=== PATIENT | female | born 1945 | race Caucasian/White ===

== ENCOUNTER 2019-04-23 10:36 | Emergency (ER) | payer MEDICARE, OTHER, SELFPAY ==
--- NOTE | ~2019-04-23 | XR_ITS ---
EXAMINATION: XR hip LT 2V w AP pelvis INDICATION: Left hip pain TECHNIQUE: AP view the pelvis and two views of the left hip are obtained. COMPARISON: 12/09/2009 FINDINGS: Bone alignment is normal. There is no fracture. There is mild hip osteoarthritis. The soft tissues are unremarkable. IMPRESSION: 1. No acute osseous abnormality. Reviewed, dictated and finalized at location A. WILL AMBASSADOR
--- NOTE | ~2019-04-23 | XR_ITS ---
EXAMINATION: XR ribs LT 2V w CXR 2V INDICATION: Left rib pain after fall TECHNIQUE: AP and lateral views of the chest and 3 views of the left ribs were obtained. COMPARISON: 10/02/2013 FINDINGS: The lungs are free of acute opacities. There is no pleural effusion or pneumothorax. The ca rdiomediastinal silhouette is normal. There is dextroscoliosis of the thoracic spine. There appear to be nondisplaced fractures of the left fifth through seventh ribs. IMPRESSION: 1. Likely nondisplaced fractures of the left fifth through seventh ribs. No acute cardiopulmonary abn ormality. Reviewed, dictated and finalized at location A. R COVERING CONTRACTOR IMPRESSION: 1. Likely nondisplaced fractures of the left fifth through seventh ribs. No acu te cardiopulmonary abnormality.
--- NOTE | ~2019-04-23 | XR_ITS ---
EXAMINATION: XR forearm LT 2V INDICATION: Pain and bruising after fall TECHNIQUE: Two views of the left forearm are obtained. COMPARISON: None available FINDINGS: There is no fracture, dislocation, or subluxation. There is mild soft tissue swelling of th e arm. No joint effusion is identified. IMPRESSION: 1. Soft tissue swelling without acute osseous abnormality. Reviewed, dictated and finalized at location A. BOX COIN COLLECTOR
--- NOTE | ~2019-04-23 | CT_ITS ---
EXAMINATION: CT brain wo con DATE: 04/23/2019 11:10 INDICATION: Head injury. TECHNIQUE: Computed tomography (CT) of the head was performed without intravenous contrast. The mA wa s adjusted according to patient size. Iterative reconstruction technique was employed. The dose-lengt h product was 605.33 mGy-cm. COMPARISON: None FINDINGS: There is no intracranial hemorrhage, acute infarction, or abnormal intracranial mass lesion . The ventricles are normal in size. The paranasal sinuses are clear. The mastoid air cells are ermelinda l. The orbits are normal. IMPRESSION: 1. Normal brain. Reviewed, dictated and finalized at location A. IC ADMINISTRATOR IMPRESSION: 1. Normal brain.
[2019-04-23 10:52] VITALS: BP 141/78; PULSE 97; RESP 16; TEMP 36.2; O2SAT 97
--- NOTE | 2019-04-23 10:53 | ED.FALL ---
HPI - Fall General Chief Complaint: Fall Stated Complaint: fall/left rib pain Time Seen by Provider: 04/23/19 10:42 Source: patient and RN notes reviewed Mode of arrival: ambulatory Limitations: no limitations History of Present Illness HPI Narrative: Pt is a 73 y/o female who presents to the ED with c/o a fall which occurred 4 days ago. She states she was walking when she tripped and fell on a concrete floor, hitting her head. She states she was at a restaurant with her when this occurred. Pt denies being evaluated by a physician after the fall because she was not in much pain. However, pt reports her pain has been worsening secondary to the fall since it occurred. She reports left-sided rib cage pain, which worsens when she sits up. Pt also reports an ecchymoses to her left groin and LUE, a headache but not currently in the ED bed, and LUE pain, but denies dizziness, blurry vision, or neck pain. Pt reports a PMHx of Parkinson's Disease so she has had similar episodes of falls in the past. She reports she will be walking when she suddenly falls. Pt currently takes medication for her Parkinson's. Pt also reports taking hyperlipidemia medication and a baby ASA daily. However, she denies being on any anticoagulation therapy medication. complaint: fall Onset (ago): day(s) (4 days ago) Fall from: standing (was walking when she tripped) Fall witnessed: yes, by family Place fall occurred: other (at a restaurant) Loss of consciousness: none Prolonged down time: unclear Symptoms prior to fall: none Context: tripped/slipped Location of injury: chest (left-sided rib cage) Associated symptoms (after fall): other (ecchymoses to left groin and LUE; LUE pain) Related Data Home Medications Medication Instructions Recorded Confirmed aspirin 81 mg tablet,delayed 81 mg PO DAILY 02/28/19 release calcium carbonate 600 mg calcium 1,200 mg PO DAILY tablet 02/28/19 (1,500 mg) tablet carbidopa 25 mg-levodopa 100 mg 2 tablet PO .COMPLEX tablet 02/28/19 tablet cholecalciferol (vitamin D3) 50 2,000 unit PO DAILY 02/28/19 mcg (2,000 unit) tablet melatonin 10 mg capsule 10 mg PO DAILY cap 02/28/19 omega-3 fatty acids-fish oil 360 1 cap PO DAILY 02/28/19 mg-1,200 mg capsule quetiapine 25 mg tablet 12.5 mg PO DAILY tablet 02/28/19 ranitidine HCl 75 mg tablet 75 mg PO DAILY 02/28/19 Allergies Allergy/AdvReac Type Severity Reaction Status Date / Time No Known Drug Allergies Allergy Unknown Unknown Verified 03/03/19 10:17 Cantaloupe Allergy Severe ANAPHYLACTIC Uncoded 03/03/19 10:17 THROAT CLOSES Review of Systems Review of Systems: All systems reviewed & are unremarkable except as noted in HPI and below Eyes: Eyes: Denies change in vision (blurry vision) Musculoskeletal: Musculoskeletal: Denies neck pain and Reports other (LUE pain; left-sided rib cage pain) Integumentary/Breasts: Skin/Breast: Reports other (ecchymoses to left groin and LUE) Neurologic: Denies dizziness PMFSH Past Medical History Medical History (Updated 04/23/19 @ 12:14 by Althea Sullivan MD) Anxiety Arthritis CVA (cerebral vascular accident) Depression GERD (gastroesophageal reflux disease) Glaucoma Hypercholesterolemia Loose left total knee arthroplasty Melena Seizures TIA (transient ischemic attack) Surgical History Surgical History (Updated 04/23/19 @ 11:05 by Carolyn Rivas) History of appendectomy Hx of tonsillectomy Family History Family History (Updated 02/05/17 @ 17:24 by DOCTOR UNKNOWN) Father Carcinoma of colon Mother Family history of lung cancer Other Diabetes mellitus Family history of gout Family history of seizure disorder Hypertension Social History Social History (Updated 03/03/19 @ 10:18 by Denise Simpson) Smoking status: Never smoker Second hand tobacco smoke exposure: No Alcohol intake: former Substance use: never Substance use type: does not us
[2019-04-23 12:37] VITALS: BP 131/72; PULSE 70; RESP 18; O2SAT 97
== END 2019-04-23 12:45 | disposition home or self-care (01) ==
PROVIDERS: Emergency Provider General Practice; PCP Family Medicine
DX: S22.42XA Multiple fractures of ribs, left side, initial encounter for closed fracture (principal); S70.02XA Contusion of left hip, initial encounter; S09.90XA Unspecified injury of head, initial encounter; F41.9 Anxiety disorder, unspecified; F32.9 Major depressive disorder, single episode, unspecified; K21.9 Gastro-esophageal reflux disease without esophagitis; G40.909 Epilepsy, unspecified, not intractable, without status epilepticus; W01.0XXA Fall on same level from slipping, tripping and stumbling without subsequent striking against object, initial encounter
CPT/HCPCS: 70450; 71045; 71101; 73090; 73502; 73521; 99284

== ENCOUNTER 2020-03-16 02:28 | Outpatient (CLI) | payer MEDICARE, OTHER, SELFPAY ==
[2020-03-16 18:38] LABS: SARS-CoV-2 RNA PCR Negative
== END 2020-03-16 02:29 | disposition home or self-care (01) ==
LOC: ANHCOVIDDT 02:29
PROVIDERS: PCP Family Medicine; Visit Provider Internal Medicine Gastroenterology
DX: Z01.812 Encounter for preprocedural laboratory examination (principal); Z20.822 Contact with and (suspected) exposure to COVID-19
CPT/HCPCS: C9803; U0003; U0005